=== PATIENT | female | born 2000 | race Caucasian/White ===

== ENCOUNTER → 2022-03-20 | Outpatient (CLI) | payer OTHER | LOC: HEART 5 07:30 | DX: R55 Syncope and collapse (principal); I07.1 Rheumatic tricuspid insufficiency | CPT/HCPCS: 93306 ==

== ENCOUNTER 2022-05-15 07:14 | Outpatient (CLI) | payer OTHER | END 2022-05-15 09:10 | disposition home or self-care (01) | LOC: GENOP 07:14 | DX: O36.8130 Decreased fetal movements, third trimester, not applicable or unspecified (principal); O47.03 False labor before 37 completed weeks of gestation, third trimester; Z3A.36 36 weeks gestation of pregnancy | CPT/HCPCS: G0463 ==

== ENCOUNTER 2022-05-31 06:10 | Inpatient (IN) | payer OTHER ==
[~2022-05-31] VITALS: Ht 160 cm; Wt 89.4 kg
[2022-05-31 07:06] LABS: HEMOGLOBIN 10.2 gm/dl (12.3-15.3); RED BLOOD COUNT 3.91 M/UL (4.00-5.10); WHITE BLOOD COUNT 11.1 K/UL (4.5-11.0)
[2022-05-31] MEDS ORDERED: COLACE 100MG C100 MG PO (15:22)
[2022-05-31] MEDS ORDERED: IBUPROFEN600 MG PO (15:22)
[2022-06-01 06:28] LABS: HEMOGLOBIN 10.4 gm/dl (12.3-15.3)
[2022-06-01] MEDS ORDERED: HYDROCODON-ACE1 EAC4 PO (12:28)
== END 2022-06-01 17:24 | disposition home or self-care (01) | DRG 807 ==
LOC: OB 06:10
PROVIDERS: ADMIT Obstetrics & Gynecology
PROC: 10E0XZZ Delivery of Products of Conception, External Approach (ICD-10-PCS; principal; 2022-05-31)
PROC: 10907ZC Drainage of Amniotic Fluid, Therapeutic from Products of Conception, Via Natural or Artificial Opening (ICD-10-PCS; 2022-05-31)
PROC: 3E033VJ Introduction of Other Hormone into Peripheral Vein, Percutaneous Approach (ICD-10-PCS; 2022-05-31)
PROC: 3E0234Z Introduction of Serum, Toxoid and Vaccine into Muscle, Percutaneous Approach (ICD-10-PCS; 2022-05-31)
DX: O99.02 Anemia complicating childbirth (principal); Z37.0 Single live birth; D64.9 Anemia, unspecified; Z3A.39 39 weeks gestation of pregnancy; Z23 Encounter for immunization; Z83.3 Family history of diabetes mellitus
CPT/HCPCS: 81001; 85014; 85018; 85025; 90715; J2590; J3430